=== PATIENT | female | born 1965 | race African-American/Black ===

== ENCOUNTER 2020-05-17 12:23 | Emergency (ER) | payer SELFPAY ==
[~2020-05-17] VITALS: Ht 167.6 cm; Wt 68.0 kg
[2020-05-17] MEDS ORDERED: SODIUM CHLORIDE 0.9% 1,000 ML IV ONE (12:45)
[2020-05-17 13:31] LABS: CHLORIDE 105 mEq/L (98-107)
[2020-05-17 13:37] LABS: ETHANOL BLOOD < 10 mg/dL
[2020-05-17 16:05] LABS: CLARITY URINE CLEAR (CLEAR); COLOR URINE YELLOW (YELLOW); KETONES URINE NEGATIVE (NEGATIVE); LEUKOCYTE ESTERASE URINE NEGATIVE (NEGATIVE); NITRITE URINE NEGATIVE (NEGATIVE); OCCULT BLOOD URINE TRACE (NEGATIVE); PROTEIN URINE NEGATIVE (NEGATIVE); UROBILINOGEN URINE 0.2 E.U./dL (0.2-1.0)
[2020-05-17 16:19] LABS: *AMPHETAMINES SCREEN URINE NEGATIVE (NEGATIVE)
[2020-05-17 16:20] LABS: *BARBITURATES SCREEN URINE NEGATIVE (NEGATIVE); *BENZODIAZEPINES SCREEN URINE PRESUMTIVE POSITIVE (NEGATIVE); *COCAINE SCREEN URINE NEGATIVE (NEGATIVE); METHADONE URINE SCREEN NEGATIVE (NEGATIVE); OPIATES URINE SCREEN PRESUMTIVE POSITIVE (NEGATIVE); PHENCYCLIDINE URINE SCREEN NEGATIVE (NEGATIVE)
[2020-05-17 16:21] LABS: CANNABINOID URINE SCREEN NEGATIVE (NEGATIVE)
[2020-05-17 16:52] LABS: BASOPHILS % 0.4 % (0.0-2.0); EOSINOPHILS % 3.5 % (0.0-5.0); HEMATOCRIT. 45.6 % (36.0-48.0); HEMOGLOBIN. 14.7 g/dL (12.0-16.0); LYMPHOCYTES % 20.6 % (20.0-50.0); MEAN CORPUSCULAR VOLUME 86.7 fL (81.0-99.0); MONOCYTES % 7.5 % (2.0-8.0); RED BLOOD CELL COUNT 5.26 mill/uL (4.2-5.4); RED CELL DISTRIBUTION WIDTH 13.7 % (11.6-14.6)
[2020-05-17 17:10] LABS: MEAN PLATELET VOLUME 8.4 fl (7.4-10.4); PLATELET 196 x1000/uL (130-400)
[2020-05-17] MEDS ORDERED: NALOXONE HCL 1 MG/ML 2ML VIAL IV ONE ×2 (17:15→18:30)
[2020-05-17] MEDS ORDERED: AMLODIPINE 5MG TABLET PO ONE (21:15)
[2020-05-18] MEDS ORDERED: ACETAMINOPHEN 325MG TABLET PO ONE (01:30)
[2020-05-18 02:00] VITALS: BP 152/98
== END 2020-05-18 02:39 | disposition home or self-care (01) ==
LOC: ER 12:51
DX: R55 Syncope and collapse (principal); G93.40 Encephalopathy, unspecified; D64.9 Anemia, unspecified; I10 Essential (primary) hypertension; F11.10 Opioid abuse, uncomplicated
CPT/HCPCS: 36415; 70450; 71045; 80053; 80305; 80307; 80320; 80329; 81003; 82962; 83690; 83880; 84484; 85025; 93005; 96361; 96374; 96376; 99285; J2310; J7030; G0480